=== PATIENT | male | born 1995 | race Caucasian/White ===

== ENCOUNTER 2018-04-07 14:46 | Emergency (ER) | payer OTHER ==
[~2018-04-07] VITALS: Ht 175.3 cm; Wt 65.8 kg
[2018-04-07] MEDS ORDERED: TAMS.4ER PO (15:34)
[2018-04-07] MEDS ORDERED: ONDA4ODT MM ×2 (15:35→15:39)
[2018-04-07] MEDS ORDERED: Hydrocodone-Ap1 EA20 PO (15:36)
[2018-04-07] MEDS ORDERED: Norco 10-325 T1 EACH PO (15:39)
[2018-04-07] MEDS ORDERED: CIPR500 PO (15:39)
[2018-04-07] MEDS ORDERED: KETO10 PO (15:39)
[2018-04-07] MEDS ORDERED: Flomax0.4 MG PO (15:39)
== END 2018-04-07 16:17 | disposition home or self-care (01) ==
LOC: ER 14:46
DX: R31.9 Hematuria, unspecified (principal); R10.9 Unspecified abdominal pain; Z87.442 Personal history of urinary calculi; F17.200 Nicotine dependence, unspecified, uncomplicated; Z88.0 Allergy status to penicillin
CPT/HCPCS: 96372; 99283; J1885